=== PATIENT | male | born 1960 | race African-American/Black ===

== ENCOUNTER 2023-07-04 15:29 | Inpatient (IN) | payer MEDICAID ==
[~2023-07-04] VITALS: Ht 180.3 cm; Wt 100.8 kg
[2023-07-04 15:36] VITALS: O2SAT 99
[2023-07-04] MEDS ORDERED: CEFTRIAXONE 1GM PREMIX 50 ML IV ONE (16:15)
[2023-07-04] MEDS ORDERED: SODIUM CHLORIDE 0.9% 1,000 ML IV ONE ×2 (16:15→22:00)
[2023-07-04] MEDS ORDERED: ACETAMINOPHEN 325MG TABLET PO ONE (16:15)
[2023-07-04 16:40] LABS: BASOPHILS % 0.5 % (0.0-2.0); EOSINOPHILS % 1.8 % (0.0-5.0); HEMATOCRIT. 36.4 % (42.0-52.0); HEMOGLOBIN. 12.1 g/dL (14.0-18.0); LYMPHOCYTES % 16.2 % (20.0-50.0); MEAN CORPUSCULAR HEMOGLOBIN 29.9 pg (28.0-32.0); MEAN CORPUSCULAR HGB CONC 33.2 g/dL (31.0-37.0); MEAN PLATELET VOLUME 8.2 fl (7.4-10.4); MONOCYTES % 7.1 % (2.0-8.0); NEUTROPHILS % 74.4 % (40.0-76.0); PLATELET 237 x1000/uL (130-400); RED BLOOD CELL COUNT 4.05 mill/uL (4.7-6.1); RED CELL DISTRIBUTION WIDTH 14.5 % (11.6-14.6); WHITE BLOOD COUNT 9.4 x1000/uL (4.5-11.0)
[2023-07-04 16:54] LABS: PROTHROMBIN TIME 10.4 sec (9.6-11.0)
[2023-07-04 17:09] LABS: ALANINE AMINOTRANSFERASE 16 IU/L (10-49); ASPARTATE AMINOTRANSFERASE 15 IU/L (<34); BILIRUBIN TOTAL 0.5 mg/dL (0.1-1.0); CALCIUM 9.2 mg/dL (8.7-10.4); CARBON DIOXIDE 27 mEq/L (21-32); CHLORIDE 102 mEq/L (98-107); CREATININE 1.2 mg/dL (0.6-1.3); GLUCOSE 116 mg/dL (70-105); POTASSIUM 4.4 mEq/L (3.5-5.1); PROTEIN TOTAL 6.5 g/dL (6.0-8.3); SODIUM 137 mEq/L (136-145); TROPONIN I HIGH SENSITIVITY 11 ng/L (3.0-53); UREA NITROGEN BLOOD 25 mg/dL (9-23)
[2023-07-04 17:29] LABS: CLARITY URINE CLOUDY (CLEAR); COLOR URINE YELLOW (YELLOW); SPECIFIC GRAVITY URINE 1.018 (1.005-1.030)
[2023-07-04 17:30] LABS: PH URINE 6.5 (4.5-8.0); PROTEIN URINE 1+ (NEGATIVE)
[2023-07-04 17:33] LABS: GLUCOSE URINE 3+ (NEGATIVE); KETONES URINE TRACE (NEGATIVE); NITRITE URINE NEGATIVE (NEGATIVE); OCCULT BLOOD URINE 2+ (NEGATIVE)
[2023-07-04 17:34] LABS: LEUKOCYTE ESTERASE URINE 3+ (NEGATIVE)
[2023-07-04] MEDS ORDERED: OXYCODONE HCL 5MG TABLET PO ONE (18:00)
[2023-07-04 18:23] LABS: WBC URINE 25-50 /hpf (0-2)
[2023-07-04 18:24] LABS: BACTERIA URINE 2+; RBC URINE 0-2 /hpf (0-2); SQUAMOUS EPITHELIAL CELL URINE RARE /lpf (RARE/1+)
[2023-07-04] MEDS ORDERED: MAGNESIUM/ALUMINUM HYDROXIDE/SIMETHICONE 30ML UDC PO PRN (20:00)
[2023-07-04] MEDS ORDERED: CLONIDINE 0.1MG TABLET PO PRN (20:00)
[2023-07-04] MEDS ORDERED: ACETAMINOPHEN 325MG TABLET PO PRN ×2 (20:00)
[2023-07-04] MEDS ORDERED: IPRATROPIUM/ALBUTEROL 0.5-3(2.5)MG/3ML NEB NEB PRN (20:00)
[2023-07-04] MEDS ORDERED: ENOXAPARIN 40MG/0.4ML SYR SUBCUT SCH (21:00)
[2023-07-04] MEDS ORDERED: PIPERACILLIN/TAZOBACTAM 3.375GM/50ML PREMIX IV ONE (22:00)
[2023-07-04] MEDS ORDERED: VANCOMYCIN 1G PREMIX 200 ML IV SCH (22:00)
[2023-07-04] MEDS ORDERED: PIPERACILLIN/TAZ 3.375G PREMIX 50 ML IV NR (22:15)
[2023-07-04] MEDS: MIDODRINE HCL 5MG TABLET PO SCH (22:38)
[2023-07-05] MEDS: SODIUM CHLORIDE 0.9% 1,000 ML IV SCH ×4 (00:13→22:17)
[2023-07-05] MEDS ORDERED: NOREPINEPHRINE 8MG/250ML PMX 250 ML IV PRN (03:00)
[2023-07-05 05:50] LABS: BASOPHILS % 0.8 % (0.0-2.0); HEMATOCRIT. 37.3 % (42.0-52.0); HEMOGLOBIN. 12.3 g/dL (14.0-18.0); LYMPHOCYTES % 19.9 % (20.0-50.0); MEAN CORPUSCULAR HEMOGLOBIN 30.2 pg (28.0-32.0); MEAN CORPUSCULAR HGB CONC 33.1 g/dL (31.0-37.0); MEAN CORPUSCULAR VOLUME 91.2 fL (80.0-94.0); MEAN PLATELET VOLUME 8.7 fl (7.4-10.4); MONOCYTES % 9.2 % (2.0-8.0); NEUTROPHILS % 67.1 % (40.0-76.0); PLATELET 210 x1000/uL (130-400); RED BLOOD CELL COUNT 4.09 mill/uL (4.7-6.1); RED CELL DISTRIBUTION WIDTH 14.8 % (11.6-14.6)
[2023-07-05 06:29] LABS: CALCIUM 9.1 mg/dL (8.7-10.4); CARBON DIOXIDE 26 mEq/L (21-32); CHLORIDE 105 mEq/L (98-107); CREATININE 0.9 mg/dL (0.6-1.3); GLUCOSE 95 mg/dL (70-105); PHOSPHORUS 4.6 mg/dL (2.5-4.9); POTASSIUM 4.2 mEq/L (3.5-5.1); SODIUM 138 mEq/L (136-145); T4 FREE 0.99 ng/dL (0.89-1.76); THYROID STIMULATING HORMONE 1.01 uIU/mL (0.55-4.78); TROPONIN I HIGH SENSITIVITY 12 ng/L (3.0-53); UREA NITROGEN BLOOD 21 mg/dL (9-23)
[2023-07-05] MEDS: MIDODRINE HCL 5MG TABLET PO SCH ×3 (07:02→22:00)
[2023-07-05 07:16] LABS: LACTIC ACID 2.6 mmol/L (0.4-2.0)
[2023-07-05] MEDS ORDERED: MIDODRINE HCL 5MG TABLET PO NR (10:00)
[2023-07-05] MEDS ORDERED: CEFTRIAXONE 1,000 MG in DEXTROSE 5% WATER 50 ML IV SCH (16:00)
[2023-07-05] MEDS ORDERED: CEFTRIAXONE 1GM PREMIX 50 ML IV NR (16:30)
[2023-07-05] MEDS: APIXABAN 5 MG TABLET PO SCH (17:00)
[2023-07-05 18:50] VITALS: BP 139/81; PULSE 48; RESP 13
[2023-07-05 19:00] VITALS: PULSE 56; RESP 19; TEMP 97.4
[2023-07-05 19:30] VITALS: BP 139/81; PULSE 48; RESP 13; TEMP 97.4
[2023-07-05 20:15] VITALS: BP 108/97; PULSE 63; RESP 21
[2023-07-05] MEDS ORDERED: HYDROCODONE/ACETAMINOPHEN 5/325MG TABLET PO ONE (21:30)
[2023-07-05 22:12] VITALS: BP 148/86; PULSE 68; RESP 16
[2023-07-05] MEDS: KETOROLAC 15MG/ML VIAL IV PRN (22:34)
[2023-07-06] VITALS: BP 105/60; PULSE 77; RESP 22; TEMP 97.8
[2023-07-06 04:00] VITALS: BP 126/70; PULSE 60; RESP 20; TEMP 97.4
[2023-07-06] MEDS: SODIUM CHLORIDE 0.9% 1,000 ML IV SCH (05:41)
[2023-07-06] MEDS: KETOROLAC 15MG/ML VIAL IV PRN (05:44)
[2023-07-06] MEDS: MIDODRINE HCL 5MG TABLET PO SCH (06:00)
[2023-07-06 07:02] LABS: BASOPHILS % 1.1 % (0.0-2.0); EOSINOPHILS % 4.1 % (0.0-5.0); HEMATOCRIT. 35.4 % (42.0-52.0); HEMOGLOBIN. 11.9 g/dL (14.0-18.0); LYMPHOCYTES % 23.6 % (20.0-50.0); MEAN CORPUSCULAR HEMOGLOBIN 30.4 pg (28.0-32.0); MEAN CORPUSCULAR HGB CONC 33.6 g/dL (31.0-37.0); MEAN CORPUSCULAR VOLUME 90.5 fL (80.0-94.0); MONOCYTES % 6.2 % (2.0-8.0); PLATELET 212 x1000/uL (130-400); RED BLOOD CELL COUNT 3.91 mill/uL (4.7-6.1); RED CELL DISTRIBUTION WIDTH 14.1 % (11.6-14.6); WHITE BLOOD COUNT 6.9 x1000/uL (4.5-11.0)
[2023-07-06 07:48] LABS: CALCIUM 9.6 mg/dL (8.7-10.4); CARBON DIOXIDE 26 mEq/L (21-32); CHLORIDE 105 mEq/L (98-107); CREATININE 0.8 mg/dL (0.6-1.3); GLUCOSE 87 mg/dL (70-105); POTASSIUM 4.4 mEq/L (3.5-5.1); SODIUM 140 mEq/L (136-145); UREA NITROGEN BLOOD 15 mg/dL (9-23)
[2023-07-06] MEDS ORDERED: LOSA-412 PO (07:52)
[2023-07-06] MEDS ORDERED: METO100T16 PO (07:55)
[2023-07-06] MEDS ORDERED: LIP40 PO (07:55)
[2023-07-06] MEDS ORDERED: GABA-532 PO (07:55)
[2023-07-06] MEDS ORDERED: DIGO125T80 PO (07:57)
[2023-07-06] MEDS ORDERED: METF-414 PO (07:57)
[2023-07-06] MEDS ORDERED: SPIR50TA5 MT (07:57)
[2023-07-06] MEDS ORDERED: FURO-151 PO (07:59)
[2023-07-06] MEDS ORDERED: PROT40 PO (07:59)
[2023-07-06] MEDS ORDERED: VITA-369 PO (08:03)
[2023-07-06] MEDS ORDERED: EMPA25TA PO (08:03)
[2023-07-06] MEDS ORDERED: LISI10TA26 MT (08:03)
[2023-07-06] MEDS ORDERED: TRAM50TA3 PO (08:03)
[2023-07-06 08:42] VITALS: BP 113/64; PULSE 80; RESP 12; TEMP 98
[2023-07-06] MEDS: APIXABAN 5 MG TABLET PO SCH (08:43)
[2023-07-06] MEDS ORDERED: SULF1TAB48 PO ×2 (10:34)
[2023-07-06] MEDS ORDERED: CEFTRIAXONE 1,000 MG in DEXTROSE 5% WATER 50 ML IV SCH (16:00)
[2023-07-06 16:04] VITALS: BP 123/58
[2023-07-15] MEDS ORDERED: LEVO750T68 PO (20:36)
== END 2023-07-06 16:14 | disposition home or self-care (01) | DRG 720 ==
LOC: ER 15:29 → MICUSO 17:53 → EDBEDREQ 17:59 → EDBEDREQTM 17:59 → SUPCPDRO 19:21 → EDBEDREQSVC 07-05 04:56 → EDBEDREQTM 07-05 04:56 → EDBEDREQSVC 07-05 05:50 → 3WST 07-05 18:31
PROVIDERS: ADMIT Internal Medicine; ATTEND Internal Medicine
DX: A41.9 Sepsis, unspecified organism (principal); I48.20 Chronic atrial fibrillation, unspecified; I95.9 Hypotension, unspecified; E11.9 Type 2 diabetes mellitus without complications; E78.5 Hyperlipidemia, unspecified; G89.29 Other chronic pain; I10 Essential (primary) hypertension; N39.0 Urinary tract infection, site not specified; M54.50 Low back pain, unspecified; Z79.899 Other long term (current) drug therapy
CPT/HCPCS: 36415; 71045; 80048; 80053; 81003; 82962; 83605; 83735; 83880; 84100; 84145; 84439; 84443; 84484; 85025; 87077; 87186; 93005; 93306; 99291; J0696; J1650; J1885; J3490; J7030; J7060